=== PATIENT | female | born 1965 | race Caucasian/White ===

== ENCOUNTER 2021-03-09 02:26 | Emergency (ER) | payer OTHER ==
--- NOTE | 2021-03-09 05:15 | NUR ---
see downtime forms
--- NOTE | 2021-03-09 05:59 | NUR ---
called Lori for CT read
--- NOTE | 2021-03-09 06:22 | NUR ---
IV removed. Catheter intact and site benign. Pressure and 4x4 applied to site. No bleeding noted. Patient discharged in stable condition. Written and verbal after care instructions given. Patient verbalizes understanding of instruction. Pt left with [employer].
[2021-03-10 04:47] LABS: CALCIUM, SERUM 8.5 mg/dL (8.5-10.1); CREATININE 0.8 mg/dL (0.6-1.3); POTASSIUM 3.5 mmol/L (3.5-5.1)
[2021-03-10 04:48] LABS: HEMATOCRIT 37 % (33-45); HEMOGLOBIN 12.2 g/dL (11.5-14.8); MEAN CORPUSCULAR VOLUME 97 fL (82-100); RED BLOOD CELL COUNT(AUTO) 3.84 MIL/uL (4.0-5.2); WHITE BLOOD COUNT (AUTO) 9.1 K/uL (4.3-11.0)
[2021-03-10 04:49] LABS: BASOPHILS % (AUTO) 0.5 % (0.0-2.0); EOSINOPHILS % (AUTO) 1.1 % (0.0-6.0); LYMPHOCYTES % (AUTO) 32.3 % (20.0-44.0); MEAN CORPUSCULAR HGB CONC 33 g/dl (31.0-36.0); MONOCYTES % (AUTO) 9.6 % (2.0-12.0); NEUTROPHILS % (AUTO) 56.5 % (43.0-81.0); PLATELET COUNT (AUTO) 176 K/uL (150-450)
== END 2021-03-09 06:46 ==
LOC: ER 02:28
DX: S30.1XXA Contusion of abdominal wall, initial encounter (principal); W18.39XA Other fall on same level, initial encounter; Y93.89 Activity, other specified; Y92.89 Other specified places as the place of occurrence of the external cause; Y99.8 Other external cause status
CPT/HCPCS: 36415; 74177; 80048; 84702; 85025; 99285; Q9967